=== PATIENT | female | born 1940 | race Caucasian/White ===

== ENCOUNTER 2018-07-14 13:46 | Emergency (ER) | payer MEDICARE, OTHER ==
[2018-07-14] MEDS ORDERED: Sodium Chloride 0.9% 10 ML Syringe FLUSH PRN (13:56)
[2018-07-14] MEDS ORDERED: Sodium Chloride 0.9% 1,000 ML IV ONE (13:57)
--- NOTE | 2018-07-14 13:58 | EDM.PDOC ---
ED HPI GENERAL MEDICAL PROBLEM - General Chief Complaint: Neuro Symptoms/Deficits Stated Complaint: STROKE SYMPTONS Time Seen by Provider: 07/14/18 13:48 Source of Information: Reports: Patient, Family, RN, RN Notes Reviewed History Limitations: Reports: No Limitations - History of Present Illness INITIAL COMMENTS - FREE TEXT/NARRATIVE: Patient presents to the ED at [facility] via POV complaining of left arm and leg weakness/numbness. Patient states the symptoms started about one hour [employer]. She was at home and symptoms occurred without provocation. She denies any headache. No chest pain. No SOB. She states she feels very sick to her stomach. No recent head injury or trauma. No changes with any medications. Patient states she took an ASA at home and her symptoms seem to get better [employer]. - Related Data Allergies Allergy/AdvReac Type Severity Reaction Status Date / Time No Known Allergies Allergy Verified 03/27/14 08:40 ED ROS GENERAL - Review of Systems Review Of Systems: See Below Constitutional: Reports: Weakness. Denies: Fever, Chills, Fatigue HEENT: Reports: No Symptoms Respiratory: Denies: Shortness of Breath, Cough Cardiovascular: Denies: Chest Pain, Palpitations GI/Abdominal: Reports: Nausea. Denies: Abdominal Pain, Vomiting Skin: Reports: No Symptoms Neurological: Reports: Numbness, Weakness, Gait Disturbance. Denies: Paresthesia, Syncope, Tingling ED EXAM, NEURO - Physical Exam Exam: See Below Exam Limited By: No Limitations General Appearance: Alert, No Apparent Distress Eye Exam: Bilateral Eye: EOMI, Normal Inspection, PERRL Head Exam: Atraumatic, Normocephalic Neck: Supple Respiratory/Chest: No Respiratory Distress, Lungs Clear, Normal Breath Sounds Cardiovascular: Normal Peripheral Pulses, Regular Rate, Rhythm GI/Abdominal: Normal Bowel Sounds, Soft, Non-Tender Neurological: Alert, No Motor/Sensory Deficits, Oriented x 3, Other (slight drift of left arm; normal left leg exam; See NIH documentation) Extremities: Normal Inspection Skin Exam: Warm, Dry, Intact, Normal Color EKG INTERPRETATION EKG Date: 07/14/18 Time: 14:08 Rhythm: NSR Rate (Beats/Min): 84 [place]: LAD-Left [place] Deviation P-Wave: Present QRS: Normal ST-T: Normal QT: Normal DC/PQ Interval: 0.16 Comparison: NA - No Prior EKG EKG Interpretation Comments: 1. Sinus Rhythm 2. Borderline Left axis deviation Course - Orders/Labs/Meds Orders: Active Orders 24 hr Category Date Time Status Head wo Cont [CT] Stat Exams 07/14/18 13:55 Taken Sodium Chloride 0.9% [Saline Flush] Med 07/14/18 13:56 Active 10 ml FLUSH ASDIRECTED PRN Peripheral IV Insertion Adult [OM.PC] Routine Oth 07/14/18 13:56 Ordered Medication Orders Sodium Chloride (Saline Flush) 10 ml FLUSH ASDIRECTED PRN PRN Reason: Keep Vein Open Labs: Laboratory Tests 07/14/18 07/14/18 07/14/18 Range/Units 14:06 14:15 14:15 WBC 5.4 (4.0-10.0) x10^3/uL RBC 3.90 L (4.00-5.50) x10^6/uL Hgb 12.9 (12.0-16.0) g/dL Hct 37.6 (33.0-47.0) % MCV 96.4 H (78.0-93.0) fL MCH 33.1 H (26.0-32.0) pg MCHC 34.3 (32.0-36.0) g/dL RDW Coeff of Narcisa 12.8 (10.0-15.0) % Plt Count 259 (130-400) x10^3/uL Neut % (Auto) 53.3 (50.0-80.0) % Lymph % (Auto) 36.1 (25.0-50.0) % Perry % (Auto) 9.5 (2.0-11.0) % Eos % (Auto) 0.9 (0.0-4.0) % Baso % (Auto) 0.2 (0.2-1.2) % PT (9.6-11.4) SEC INR (2.0-3.5) Sodium 144 (136-145) mmol/L Potassium 3.3 L (3.5-5.1) mmol/L Chloride 108 H (98-107) mmol/L Carbon Dioxide 27 (21-32) mmol/L Anion Gap 12.3 (10-20) mmol/L BUN 16 (7-18) mg/dL Creatinine 0.9 (0.55-1.02) mg/dL Est Cr Clr Drug Dosing TNP Estimated GFR (MDRD) > 60 Glucose 131 H (74-106) mg/dL POC Glucose 123 H (74-106) mg/dL Calcium 8.7 (8.5-10.1) mg/dL Corrected Calcium 9.34 (8.5-10.1) mg/dL Total Bilirubin 0.3 (0.2-1.0) mg/dL AST 24 (15-37) U/L ALT 29 (14-59) U/L Alkaline Phosphatase 85 (46-116) U/L Creatine Kinase 131 (26-192) U/L POC Troponin I (0.00-0.08) ng/mL Total Protein 7.0 (6.4-8.2) g/dL Albumin 3.2 L (3.4-5.0) g/dL Globulin 3.8 Albumin/Globulin Ratio 0.84 18 /18 Range/Units 14:15 14:16 WBC (4.0-10.0) x10^3/uL RBC (4.00-5.50) x10^6/uL Hgb (12.0-16.0) g/dL Hct (33.0-47.0) % MCV (78.0-93.0) fL MCH (26.0-32.0) pg MCHC (32.0-36.0) g/dL RDW Coeff of Narcisa (10.0-15.0) % Plt Count (130-400) x10^3/uL Neut % (Auto) (50.0-80.0) % Lymph % (Auto) (25.0-50.0) % Perry % (Auto) (2.0-11.0) % Eos % (Auto) (0.0-4.0) % Baso % (Auto) (0.2-1.2) % PT 9.6 (9.6-11.4) SEC INR 0.9 L (2.0-3.5) Sodium (136-145) mmol/L Potassium (3.5-5.1) mmol/L Chloride (98-107) mmol/L Carbon Dioxide (21-32) mmol/L Anion Gap (10-20) mmol/L BUN (7-18) mg/dL Creatinine (0.55-1.02) mg/dL Est Cr Clr Drug Dosing Estimated GFR (MDRD) Glucose (74-106) mg/dL POC Glucose (74-106) mg/dL Calcium (8.5-10.1) mg/dL Corrected Calcium (8.5-10.1) mg/dL Total Bilirubin (0.2-1.0) mg/dL AST (15-37) U/L ALT (14-59) U/L Alkaline Phosphatase (46-116) U/L Creatine Kinase (26-192) U/L POC Troponin I 0.00 (0.00-0.08) ng/mL Total Protein (6.4-8.2) g/dL Albumin (3.4-5.0) g/dL Globulin Albumin/Globulin Ratio Meds: Medications Generic Name Dose Route Start Last Admin Trade Name Freq PRN Reason Stop Dose Admin Sodium Chloride 10 ml 07/14/18 13:56 Saline Flush FLUSH ASDIRECTED PRN Keep Vein Open Discontinued Medications Generic Name Dose Route Start Last Admin Trade Name Freq PRN Reason Stop Dose Admin Sodium Chloride 1,000 mls @ 999 mls/hr 07/14/18 13:57 07/14/18 15:14 Normal Saline IV 07/14/18 14:57 999 mls/hr ONETIME ONE Administration Potassium Chloride 40 meq 07/14/18 14:51 07/14/18 15:15 Klor-Con M20 PO 07/14/18 14:52 40 meq ONETIME ONE Administration - Radiology Interpretation Free Text/Narrative:: CT Head: Negative plain CT brain See scanned report in EMR CT Results Date: 07/14/18 CT Results Time: 14:17 Departure - Departure Time of Disposition: 15:26 Disposition: Home, Self-Care 01 Condition: Good Clinical Impression: Muscle weakness - Discharge Information *PRESCRIPTION DRUG MONITORING PROGRAM REVIEWED*: Not Applicable *COPY OF PRESCRIPTION DRUG MONITORING REPORT IN PATIENT RENÉE: Not Applicable Instructions: Stroke Prevention, Weakness Referrals: Sondra Osborne DO [Primary Care Provider] - Forms: ED Department Discharge Additional Instructions: 1. Stay well hydrated and rest 2. Continue with same medications at home 3. Rest and relax this weekend; slowly work back into your normal routine 4. See Dr. Osborne next week as symptoms warrant 5. Call us with any questions or concerns ED Communication - ED Communication Date/Time Date: 07/14/18 Time Called: 13:34 - Discussed Case With (1) Discussed Case With (1): Outpatient Provider (Dr. Childress, Neurologist) - Conversation Summary Outpatient Provider Agreed to Follow-up on this Patient: Yes Patient Aware of Amendments fo Care Plan: Yes - Problem List Review Problem List Initiated/Reviewed/Updated: Yes - My Orders Last 24 Hours: My Active Orders 07/14/18 13:55 Head wo Cont [CT] Stat 07/14/18 13:56 Sodium Chloride 0.9% [Saline Flush] 10 ml FLUSH ASDIRECTED PRN Peripheral IV Insertion Adult [OM.PC] Routine - Assessment/Plan Last 24 Hours: My Active Orders 07/14/18 13:55 Head wo Cont [CT] Stat 07/14/18 13:56 Sodium Chloride 0.9% [Saline Flush] 10 ml FLUSH ASDIRECTED PRN Peripheral IV Insertion Adult [OM.PC] Routine Assessment:: Case was discussed with Dr. Childress, Neurology [place]. No additional testing warrant. Patient may only have small vessel disease. No additional medications advised. Will monitor patient for one hour and see if she is able to ambulate. If able, will discharge home. Plan: Labs, CT, and assessment findings shared with family. Discussed Neurologist findings. No stroke or TIA appreciated. Will have patient monitored for one hour in department. Discharge home and have patient follow up with PCP. Discussed neuro deficits and if any concerns, call 911 or bring patient back in for re-eval. Patient and family verbalized understanding. Patient and family agree with POC.
[2018-07-14 14:40] LABS: CHLORIDE,CL 108 mmol/L (98-107); SODIUM,NA 144 mmol/L (136-145)
[2018-07-14 14:45] LABS: ANION GAP 12.3 mmol/L (10-20)
[2018-07-14] MEDS ORDERED: Potassium Chloride 20 MEQ Tab.ER PO ONE (14:51)
== END 2018-07-14 16:31 | disposition home or self-care (01) ==
LOC: VM.ED 13:46
DX: M62.81 Muscle weakness (generalized) (principal)
CPT/HCPCS: 36415; 70450; 80053; 82550; 82962; 84484; 85025; 85610; 93005; 96360; 99284; A9270; J7030

== ENCOUNTER 2024-05-26 12:20 | Emergency (ER) | payer MEDICARE, OTHER ==
[2024-05-26] MEDS ORDERED: Sodium Chloride 0.9% 10 ML Syringe FLUSH PRN (12:42)
[2024-05-26] MEDS ORDERED: Sodium Chloride 0.9% 500 ML IV ONE (12:42)
[2024-05-26 12:55] LABS: BASOPHILS PERCENT AUTO 0.2 % (0.2-1.2); HEMATOCRIT 39.8 % (33.0-47.0); HEMOGLOBIN 13.3 g/dL (12.0-16.0); IMMATURE GRAN ABSOLUTE AUTO 0.02 x10^3/uL (0.00-0.07); LYMPHOCYTES ABSOLUTE AUTO 1.4 x10^3/uL (1.0-4.8); LYMPHOCYTES PERCENT AUTO 16.3 % (25.0-50.0); MEAN CORPUSCULAR HEMOGLOBIN 31.1 pg (26.0-32.0); MEAN CORPUSCULAR HGB CONC 33.4 g/dL (32.0-36.0); MONOCYTES ABSOLUTE AUTO 0.2 x10^3/uL (0.0-0.8); MONOCYTES PERCENT AUTO 2.8 % (2.0-11.0); NEUTROPHILS ABSOLUTE AUTO 6.6 x10^3/uL (1.8-7.7); NEUTROPHILS PERCENT AUTO 80.5 % (50.0-80.0); PLATELET COUNT,PLT 289 x10^3/uL (130-400); RED BLOOD CELL COUNT 4.28 x10^6/uL (4.00-5.50); WHITE BLOOD CELL COUNT,WBC 8.3 x10^3/uL (4.0-10.0)
[2024-05-26] MEDS: Sodium Chloride 0.9% 1,000 ML IV ONE (13:05)
[2024-05-26] MEDS: Ondansetron 4 MG/2 ML SDV IVPUSH ONE (13:05)
[2024-05-26 13:15] LABS: A/G RATIO 0.86; ALANINE AMINOTRANSFERASE,ALT 24 U/L (14-59); ALBUMIN 3.7 g/dL (3.4-5.0); ALKALINE PHOSPHATASE 84 U/L (46-116); ASPARTATE AMNIOTRANSFERASE,AST 22 U/L (15-37); BILIRUBIN TOTAL 0.5 mg/dL (0.2-1.0); BLOOD UREA NITROGEN,BUN 25 mg/dL (7-18); CALCIUM 9.2 mg/dL (8.5-10.1); CARBON DIOXIDE,CO2 29 mmol/L (21-32); CHLORIDE,CL 99 mmol/L (98-107); CREATININE 1.2 mg/dL (0.55-1.02); GLUCOSE RANDOM 178 mg/dL (70-99); LIPASE 53 U/L (19-71); POTASSIUM,K 3.6 mmol/L (3.5-5.1); SODIUM,NA 140 mmol/L (136-145)
[2024-05-26 13:16] LABS: ANION GAP 15.6 mmol/L (5-15); ESTIMATED GFR 45 mL/min (>=60)
== END 2024-05-26 13:55 | disposition home or self-care (01) ==
LOC: VM.ED 12:20
DX: R11.10 Vomiting, unspecified (principal); R19.7 Diarrhea, unspecified
CPT/HCPCS: 36415; 80053; 83690; 85025; 96361; 96374; 99284; J2405; J7030; 99283

== ENCOUNTER 2025-08-08 15:22 | Emergency (ER) | payer MEDICARE, OTHER | END 2025-08-08 16:17 | disposition home or self-care (01) | LOC: VM.ED 15:22 → SUPCPDRO 15:22 → VM.ED 16:17 | DX: I10 Essential (primary) hypertension (principal); E78.5 Hyperlipidemia, unspecified; E78.00 Pure hypercholesterolemia, unspecified; K21.9 Gastro-esophageal reflux disease without esophagitis; Z91.011 Allergy to milk products; Z91.040 Latex allergy status; Z79.82 Long term (current) use of aspirin; Z79.899 Other long term (current) drug therapy | CPT/HCPCS: 99283 ==